=== PATIENT | female | born 1940 | race Caucasian/White ===

== ENCOUNTER → 2018-08-12 | Outpatient (CLI) | payer OTHER | END | disposition home or self-care (01) | LOC: CFH 13:32 | PROVIDERS: ATTEND Nurse Practitioner Primary Care | DX: Z13.820 Encounter for screening for osteoporosis (principal); M81.0 Age-related osteoporosis without current pathological fracture; Z78.0 Asymptomatic menopausal state; E78.2 Mixed hyperlipidemia; E55.9 Vitamin D deficiency, unspecified; E88.81 Metabolic syndrome and other insulin resistance; Z79.899 Other long term (current) drug therapy | CPT/HCPCS: 77080 ==

== ENCOUNTER → 2019-01-01 | Outpatient (CLI) | payer OTHER | END | disposition home or self-care (01) | LOC: CFH 15:58 | PROVIDERS: ATTEND Nurse Practitioner Primary Care | DX: M16.11 Unilateral primary osteoarthritis, right hip (principal); M47.816 Spondylosis without myelopathy or radiculopathy, lumbar region; E55.9 Vitamin D deficiency, unspecified; E78.2 Mixed hyperlipidemia; F51.01 Primary insomnia; Z79.899 Other long term (current) drug therapy ==

== ENCOUNTER → 2020-03-24 | Outpatient (CLI) | payer OTHER ==
[~2020-03-24] MED LIST: CELE50CA PO; PARO10TA56 PO
[2020-03-24 14:44] LABS: BASOPHILS # (AUTO) 0.03 x10^3/uL (0-0.1); BASOPHILS % (AUTO) 0 % (0-1); EOSINOPHILS # (AUTO) 0.08 x10^3/uL (0-0.4); EOSINOPHILS % (AUTO) 1 % (1-7); LYMPHOCYTES # (AUTO) 1.82 x10^3/uL (1-3.4); LYMPHOCYTES % (AUTO) 27 % (22-44); MD NO; MEAN CORPUSCULAR HEMOGLOBIN 31.3 pg (27.0-34.8); MEAN CORPUSCULAR HGB CONC 32.6 g/dL (32.4-35.8); MEAN CORPUSCULAR VOLUME 96.2 fL (80-100); MEAN PLATELET VOLUME 8.3 fL (7.4-10.4); MONOCYTES # (AUTO) 0.68 x10^3/uL (0.2-0.8); MONOCYTES % (AUTO) 10 % (2-9); NEUTROPHILS # (AUTO) 4.26 x10^3/uL (1.8-6.8); NEUTROPHILS % (AUTO) 62 % (42-75); PLATELET COUNT 270 x10^3/uL (130-400); RED BLOOD COUNT 4.97 x10^6/uL (3.82-5.3); RED CELL DISTRIBUTION WIDTH 13.6 % (9.6-15.2)
[2020-03-24 14:52] LABS: INTERNATIONAL NORMALIZED RATIO 0.99 (0.93-1.1); PROTHROMBIN TIME 10.5 Seconds (9.6-11.5)
[2020-03-24 14:54] LABS: ANION GAP 3 mmol/L (5-15); CALCIUM 9.8 mg/dL (8.5-10.1); CHLORIDE 109 mmol/L (98-107)
[2020-03-24 14:56] LABS: CREATININE 0.75 mg/dL (0.55-1.02)
== END | disposition home or self-care (01) ==
LOC: STAR 13:21
PROVIDERS: ATTEND Neurological Surgery
DX: Z01.818 Encounter for other preprocedural examination (principal); M48.062 Spinal stenosis, lumbar region with neurogenic claudication; I25.2 Old myocardial infarction
CPT/HCPCS: 36415; 71046; 80048; 85025; 85610; 85730; 93005

== ENCOUNTER → 2020-03-29 | Outpatient (CLI) | payer OTHER | END | disposition home or self-care (01) | LOC: CFH 13:41 | PROVIDERS: ATTEND Nurse Practitioner Primary Care | DX: Z12.31 Encounter for screening mammogram for malignant neoplasm of breast (principal) | CPT/HCPCS: 76641; 77063; 77067 ==

== ENCOUNTER 2020-04-07 08:20 | Day surgery (SDC) | payer OTHER ==
[~2020-04-07] VITALS: Ht 165.1 cm; Wt 78.9 kg
[~2020-04-07 08:20] MED LIST changes: +FENTANYL PF 250 MCG/5ML ONE
[2020-04-07] MEDS ORDERED: PROPOFOL 10 MG/ML, 20ML ONE (09:14)
[2020-04-07] MEDS ORDERED: ROCURONIUM 10MG/ML,5ML ONE (09:14)
[2020-04-07] MEDS ORDERED: GLYCOPYRROLATE 0.2MG/1ML, 5ML ONE (09:14)
[2020-04-07] MEDS ORDERED: ONDANSETRON 2MG/ML, 2ML ONE (09:14)
[2020-04-07] MEDS ORDERED: NEOSTIGMINE 1 MG/ML, 10ML ONE (09:14)
[2020-04-07] MEDS ORDERED: CEFAZOLIN 1,000 MG ONE (09:14)
[2020-04-07] MEDS ORDERED: DEXAMETHASONE 4 MG/ML, 1ML ONE (09:14)
[2020-04-07] MEDS ORDERED: LACTATED RINGERS 1,000 ML IV SCH (09:22)
[2020-04-07 09:26] VITALS: BP 127/81
[2020-04-07] MEDS ORDERED: ACETAMINOPHEN 500 MG TABLET PO ONE (09:30)
[2020-04-07] MEDS ORDERED: GABAPENTIN 300 MG CAPSULE PO ONE (09:30)
[2020-04-07] MEDS ORDERED: CHLORHEXIDINE 15 ML UDC MM ONE (09:30)
[2020-04-07] MEDS ORDERED: BACITRACIN 50,000 UNIT ONE (10:25)
[2020-04-07] MEDS ORDERED: BUPIVACAINE/PF-EPI 0.5% 1:200K ONE (10:25)
[2020-04-07] MEDS ORDERED: PHENYLEPHRINE 10 MG/ML ONE (10:49)
[2020-04-07] MEDS ORDERED: OXYcodone 5 MG/5 ML ORAL.SOL UDC PO PRN (11:00)
[2020-04-07] MEDS ORDERED: FENTANYL PF 100 MCG/2ML IV PRN (11:00)
[2020-04-07] MEDS ORDERED: HYDROmorphone 1 MG/ML, 1ML INJ IVPush PRN (11:00)
[2020-04-07] MEDS ORDERED: HALOPERIDOL 5 MG/ML IV PRN (11:00)
[2020-04-07] MEDS ORDERED: LABETALOL 5MG/ML, 20ML IV PRN (11:00)
[2020-04-07] MEDS ORDERED: morphine SULFATE 10 MG/ML, 1ML IVPush PRN (11:00)
[2020-04-07] MEDS ORDERED: MEPERIDINE/PF 25MG/0.5ML IVPush PRN (11:00)
[2020-04-07] MEDS ORDERED: PROMETHAZINE 25 MG/ML, 1ML IVPush PRN (11:00)
[2020-04-07] MEDS ORDERED: hydrALAzine 20 MG/ML, 1ML IV PRN (11:00)
[2020-04-07] MEDS ORDERED: SUGAMMADEX 200 MG/2 ML IVPush ONE (11:57)
[2020-04-07] MEDS ORDERED: OXYcodone 5 MG/5 ML ORAL.SOL UDC ONE (12:40)
== END 2020-04-07 16:15 | disposition home or self-care (01) ==
LOC: OUT 08:20
PROVIDERS: ATTEND Neurological Surgery
DX: M48.061 Spinal stenosis, lumbar region without neurogenic claudication (principal); Z11.59 Encounter for screening for other viral diseases; M54.16 Radiculopathy, lumbar region; G47.00 Insomnia, unspecified; M19.90 Unspecified osteoarthritis, unspecified site; Z79.899 Other long term (current) drug therapy; Z88.5 Allergy status to narcotic agent; Z90.710 Acquired absence of both cervix and uterus; Z98.890 Other specified postprocedural states; Z82.61 Family history of arthritis; Z83.3 Family history of diabetes mellitus; Z80.9 Family history of malignant neoplasm, unspecified
CPT/HCPCS: 36415; 63047; 72100; 87635; J0690; J1100; J2370; J2405; J2704; J2710; J3010; J7120